=== PATIENT | male | born 1985 | race Caucasian/White ===

== ENCOUNTER 2019-08-05 20:58 | Emergency (ER) | payer MEDICAID ==
[~2019-08-05] VITALS: Ht 172.7 cm; Wt 65.8 kg
--- NOTE | 2019-08-05 21:13 | NUR ---
ED Nurse Note: Pt was brought in by ambulance from streets, pt was found passed out in his car after taking heroin. Pt is lethargic, answers questions when aroused. VSS except Spo2 dips down to 88% on RA. Pt placed on tread booker and 2L NC. IV placed blood sent to lab, IV fluids infusing per order, narcan given and pt is awake and alert. Will continue to monitor
[2019-08-05] MEDS ORDERED: Naloxone 0.4mg/ml Inj IVP ONE (21:15)
[2019-08-05] MEDS ORDERED: NARCAN4 MG NS (21:21)
--- NOTE | 2019-08-05 21:21 | Emergency Room Report ---
History of Present Illness General Chief Complaint: Overdose Source: Patient Present Illness HPI 34-year-old male was found in his car prior to arrival with heroin patient then woke up when EMS arrived, patient states "where am I," knowledges that he used heroin, patient presents with slight sleepiness aggravated by heroin alleviated by not taking heroin severity is mild, patient denies any chest pain or shortness of breath patient presents for evaluation Allergies: Coded Allergies: No Known Allergies (Unverified , 08/05/19) COVID-19 Screening Contact w/high risk pt: No Recent Travel to affected area: No Experienced COVID-19 symptoms?: No Patient History Past Medical History: see triage record Social History: Reports: drug use - Heroin Reviewed Nursing Documentation: PMH: Agreed; PSxH: Agreed Nursing Documentation-PMH Past Medical History: No Stated History Review of Systems All Other Systems: negative except mentioned in HPI Physical Exam Vital Signs Date Time Temp Pulse Resp B/P (MAP) Pulse Ox O2 Delivery O2 Flow Rate FiO2 08/05/19 20:53 100 12 128/77 (94) 95 Room Air Sp02 EP Interpretation: reviewed, abnormal - Desaturation when patient falls asleep General Appearance: well appearing, no apparent distress, alert Head: normocephalic, atraumatic Eyes: bilateral eye PERRL, bilateral eye EOMI ENT: uvula midline, moist mucus membranes Neck: supple, thyroid normal, supple/symm/no masses Respiratory: lungs clear, no respiratory distress, no retraction, no accessory muscle use Cardiovascular #1: normal peripheral pulses, regular rate, rhythm, no edema, no gallop, no murmur Gastrointestinal: non tender, soft, no guarding, no rebound Musculoskeletal: normal inspection Neurologic: alert, oriented x3 Psychiatric: mood/affect normal Skin: no rash, warm/dry Medical Decision Making Diagnostic Impression: Primary Impression: Drug overdose Qualified Codes: T50.901A - Poisoning by unspecified drugs, medicaments and biological substances, accidental (unintentional), initial encounter ER Course 34-year-old male presents with heroin overdose, patient required a little bit of Narcan to wake him up. 0.4 mg was given Patient was observed, and subsequently discharged, patient was counseled on drug abuse Chest x-ray negative, EKG negative Disposition Home with return precautions referral to PCP, a prescription for Narcan was given EKG Diagnostic Results EKG Time: 21:21 EP Interpretation: Sinus tachycardia, rate 101, QTc 433, no acute ST elevations , normal axis Rhythm Strip Diag. Results Rhythm Strip Time: 21:21 EP Interpretation: yes Rate: 104 Rhythm: other - Sinus tachycardia Chest X-Ray Diagnostic Results Chest X-Ray Diagnostic Results : Chest X-Ray Ordered: Yes # of Views/Limited/Complete: 1 View Indication: Shortness of Breath EP Interpretation: Yes Interpretation: no consolidation, no effusion, no pneumothorax, no acute cardiopulmonary disease Impression: No acute disease Electronically Signed by: Michael Escobar MD Last Vital Signs Date Time Temp Pulse Resp B/P (MAP) Pulse Ox O2 Delivery O2 Flow Rate FiO2 08/05/19 20:53 100 12 128/77 (94) 95 Room Air Disposition: HOME, SELF-CARE Condition: Stable Scripts Naloxone HCl (Narcan) 4 Mg Forsan 4 MG NS ONCE PRN for opioid overdose, #1 SPRAY Prov: Michael Escobar MD 08/05/19 Referrals: [facility] Patient Instructions: Opioid Use Disorder Additional Instructions: The patient was provided with discharge instructions, notified to follow-up with a primary care doctor and or specialist in the next 24-48 hours, and to return to the ED if they have worsening of their symptoms. Please note that this report is being documented using [employer] technology. This can lead to erroneous entry secondary to incorrect interpretation by the dictating instrument. Michael Escobar MD August 05, 2019 21:21
[2019-08-05 21:34] VITALS: BP 128/77
--- NOTE | 2019-08-05 21:57 | NUR ---
ED Nurse Note: Pt tolerated juice and water without issue
[2019-08-06 00:15] VITALS: BP 128/77
--- NOTE | 2019-08-06 00:15 | NUR ---
ER DISCHARGE NOTE: Patient is cleared to be discharged per ERMD, pt is aox4, on room air, with stable vital signs. pt was given dc and prescription instructions, pt was able to verbalize understanding, pt id band and iv site removed without complications. pt is able to ambulate with steady gait. pt took all belongings.
--- NOTE | 2019-08-06 09:10 | Diagnostic Imaging Report ---
Indication: Shortness of breath Technique: One view of the chest Comparison: none Findings: Lungs and pleural spaces are clear. Heart size is normal. Impression: No acute process
== END 2019-08-06 00:15 | disposition home or self-care (01) ==
LOC: EDBD 20:58 → EMR 21:15
DX: T40.1X1A Poisoning by heroin, accidental (unintentional), initial encounter (principal); R00.0 Tachycardia, unspecified; X58.XXXA Exposure to other specified factors, initial encounter; Y92.9 Unspecified place or not applicable
CPT/HCPCS: 71045; 93005; 96361; 96374; J2310; J7030; Z7502; 99284

== ENCOUNTER 2019-09-05 04:17 | Emergency (ER) | payer MEDICAID ==
[~2019-09-05] VITALS: Ht 172.7 cm; Wt 63.5 kg
[~2019-09-05 04:17] MED LIST: NARCAN4 MG NS
--- NOTE | 2019-09-05 04:34 | NUR ---
ED Nurse Note: Pt walked into ED for c/o R forearm discomfort and swelling after using IV heroin/cocaine a few hours [employer]. Pt states he missed the vein. Pt is otherwise aaox4, breathing is normal and unlabored, VSS. Swelling to R forearm noted, no open wound. No fever, SOB or cough.
[2019-09-05 04:36] VITALS: BP 107/69
[2019-09-05] MEDS ORDERED: CLINDAMYCIN HC300 MG ORAL (04:38)
[2019-09-05 04:40] VITALS: BP 108/75
--- NOTE | 2019-09-05 04:40 | NUR ---
ER DISCHARGE NOTE: Patient is cleared to be discharged per ERMD, pt is aox4, on room air, with stable vital signs. pt was given dc and prescription instructions, pt was able to verbalize understanding, pt id band removed. pt is able to ambulate with steady gait. pt took all belongings.
--- NOTE | 2019-09-05 04:44 | Emergency Room Report ---
History of Present Illness General Chief Complaint: Pain Source: Patient Present Illness HPI 34-year-old male presents from home due to right arm pain. He was reportedly injecting heroin and cocaine when he missed the vein. He infiltrated his arm. Now having pain at the site that is approximately 8 out of 10 and worse with palpation. He denies any other injuries. Patient denies any medical history. Allergies: Coded Allergies: ARIPIPRAZOLE (Verified Allergy, Unknown, 09/05/19) PROCHLORPERAZINE (Verified Allergy, Unknown, 09/05/19) COVID-19 Screening Contact w/high risk pt: No Recent Travel to affected area: No Experienced COVID-19 symptoms?: No COVID-19 Testing performed SPRAY GUNNER: No Patient History Reviewed Nursing Documentation: PMH: Agreed; PSxH: Agreed Nursing Documentation-PMH Past Medical History: No History, Except For Hx Asthma: Yes Review of Systems All Other Systems: negative except mentioned in HPI Physical Exam Vital Signs Date Time Temp Pulse Resp B/P (MAP) Pulse Ox O2 Delivery O2 Flow Rate FiO2 09/05/19 04:22 98.4 74 20 107/69 (82) 95 Room Air Sp02 EP Interpretation: reviewed, normal General Appearance: well appearing, no apparent distress Head: normocephalic, atraumatic Eyes: bilateral eye PERRL, bilateral eye EOMI ENT: hearing grossly normal, moist mucus membranes Neck: full range of motion, supple Respiratory: lungs clear, normal breath sounds, no rhonchi, no respiratory distress, no retraction, no wheezing Cardiovascular #1: normal peripheral pulses, regular rate, rhythm, no murmur Gastrointestinal: non tender, soft, non-distended, no guarding Neurologic: alert, oriented x3, no focal defects Skin: normal color, warm/dry, other - Right arm with hematoma noted to forearm , no erythema, 2+ pulses, sensation intact Medical Decision Making Diagnostic Impression: Primary Impression: IV drug user Additional Impression: Hematoma ER Course Patient presented with a hematoma to the right forearm secondary to IV use and infiltration. He was in no acute distress. He was afebrile. Did not appear to be cellulitis or abscess at this time but as he did inject into his intramuscular and subcutaneous space I did put him on prophylactic antibiotics. Also recommended warm compress. Also recommended avoiding further IV drug use. Patient agreeable with the plan. Stable for discharge. Last Vital Signs Date Time Temp Pulse Resp B/P (MAP) Pulse Ox O2 Delivery O2 Flow Rate FiO2 09/05/19 04:36 98.4 74 20 107/69 95 Room Air Disposition: HOME, SELF-CARE Condition: Stable Scripts Clindamycin Hcl (CLINDAMYCIN HCL) 300 Mg Capsule 300 MG ORAL THREE TIMES A DAY, #21 CAP Prov: Michael Orellana M.D. 09/05/19 Patient Instructions: Substance Use Disorder, Hematoma, [id number] Additional Instructions: Patient is instructed to follow-up with her primary care doctor, primary care clinic or [facility] in 1 to 2 days. Patient instructed to return for any worsening symptoms or concerns. Disclaimer: Please note that this report is being documented using [employer] technology. This can lead to erroneous entry secondary to incorrect interpretation by the dictating instrument. Michael Orellana M.D. Sep 05, 2019 04:44
== END 2019-09-05 04:40 | disposition home or self-care (01) ==
LOC: EMR 04:28
DX: S50.11XA Contusion of right forearm, initial encounter (principal); W46.0XXA Contact with hypodermic needle, initial encounter; Y92.9 Unspecified place or not applicable; F19.90 Other psychoactive substance use, unspecified, uncomplicated; Z88.8 Allergy status to other drugs, medicaments and biological substances
CPT/HCPCS: 99282

== ENCOUNTER 2020-06-11 17:46 | Emergency (ER) | payer MEDICAID ==
[~2020-06-11] VITALS: Ht 172.7 cm; Wt 67.6 kg
[~2020-06-11 17:46] MED LIST changes: +CLINDAMYCIN HC300 MG ORAL
[2020-06-11] MEDS ORDERED: WELLBUTRIN XL150 M1 ORAL (18:25)
--- NOTE | 2020-06-11 18:25 | NUR ---
Pt reports he is low on Wellbutrin XL 300mg qAM. Pt is here for medication refill.
--- NOTE | 2020-06-11 18:29 | Emergency Room Report ---
History of Present Illness General Chief Complaint: Medication Refill Source: Patient Present Illness HPI Patient is a 35-year-old male presents for medication refill. Patient had nearly run out of his medications which he had recently been prescribed after discharge from rehab. Denies any current complaints. Has been taking Wellbutrin XR. Denies any fever or other complaints. Denies any suicidal thoughts. Allergies: Coded Allergies: ARIPIPRAZOLE (Verified Allergy, Unknown, 09/05/19) PROCHLORPERAZINE (Verified Allergy, Unknown, 09/05/19) COVID-19 Screening Contact w/high risk pt: No Recent Travel to affected area: No Experienced COVID-19 symptoms?: No COVID-19 Testing performed INTERVENTIONAL RADIOLOGY RN: No Patient History Reviewed Nursing Documentation: PMH: Agreed; PSxH: Agreed Nursing Documentation-PMH Hx Asthma: Yes Review of Systems All Other Systems: negative except mentioned in HPI Physical Exam Vital Signs Date Time Temp Pulse Resp B/P (MAP) Pulse Ox O2 Delivery O2 Flow Rate FiO2 06/11/20 18:18 98.8 86 16 117/67 (84) 96 Room Air General Appearance: well appearing, no apparent distress, alert, GCS 15 Head: normocephalic, atraumatic ENT: hearing grossly normal, normal voice Neck: full range of motion, supple Respiratory: no respiratory distress, speaking full sentences Cardiovascular #1: normal inspection, regular rate, rhythm Gastrointestinal: normal inspection, soft Musculoskeletal: no calf tenderness Neurologic: alert, motor strength/tone normal, colorman III-XII nml as tested, oriented x3, normal gait Psychiatric: normal inspection, judgement/insight normal, memory normal, mood/affect normal, no suicidal/homicidal ideation Skin: no rash Medical Decision Making Diagnostic Impression: Primary Impression: Medicine refill ER Course Presents for medication refill. Differential diagnosis include was not limited to for medication refill, psychosis, depression among others. Patient has a benign exam and does not appear to require any imaging or laboratory testing at this time. Patient denies any current complaints and this appears to be simply a medication refill. Patient was given short-term prescription for Wellbutrin. He was advised to follow-up with his prior physician or psychiatrist for further refills. He is advised to return if worse. This medical record is generated with [employer] certified prosthetist vice president software. There may be some certified prosthetist vice president discre pancies related to use of this software Last Vital Signs Date Time Temp Pulse Resp B/P (MAP) Pulse Ox O2 Delivery O2 Flow Rate FiO2 06/11/20 18:18 98.8 86 16 117/67 (84) 96 Room Air Status: improved Disposition: HOME, SELF-CARE Condition: Stable Scripts Bupropion HCl (Wellbutrin Xl) 300 Mg Tab.er.24h 300 MG ORAL DAILY for 14 Days, #14 TAB 0 Refills Prov: Jasper Key MD 06/11/20 Patient Instructions: Medicine Refill at the Emergency Department Jasper Key MD Jun 11, 2020 18:29
[2020-06-11 18:31] VITALS: BP 117/67
--- NOTE | 2020-06-11 18:32 | NUR ---
discharged home with instruction and rx
== END 2020-06-11 18:32 | disposition home or self-care (01) ==
LOC: EMR 18:14
DX: Z76.0 Encounter for issue of repeat prescription (principal); Z88.8 Allergy status to other drugs, medicaments and biological substances
CPT/HCPCS: 99282